=== PATIENT | female | born 1990 | race Caucasian/White ===

== ENCOUNTER 2019-07-13 00:07 | Emergency (ER) | payer MEDICAID ==
[~2019-07-13] VITALS: Ht 157.5 cm; Wt 63.5 kg
[2019-07-13 00:10] VITALS: BP 129/80
--- NOTE | 2019-07-13 00:15 | NUR ---
PT TAKEN TO BED 12
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
--- NOTE | 2019-07-13 00:31 | NUR ---
Dr. Estevez examining patient.
--- NOTE | 2019-07-13 00:33 | NUR ---
CALLED [place] [employer] AND REPORTED INCIDENT. SPOKE WITH SANDEEP, ADVISED PT TO FOLLOW UP WITH INCIDENT REPORTING AT [place] [employer] STATION AFTER DISCHARGE.
[2019-07-13] MEDS ORDERED: ACETAMINOPHEN EXTRA STRENGTH 500 MG TAB PO ONE (00:35)
[2019-07-13] MEDS ORDERED: LIDOCAINE 2% 1000 MG/50 ML VIAL INJ ONE (00:40)
--- NOTE | 2019-07-13 01:15 | NUR ---
PT TAKEN TO CT
--- NOTE | 2019-07-13 01:38 | NUR ---
PT RETURN FROM CT
[2019-07-13] MEDS ORDERED: BACITRACIN OINT 500 UNITS/GM PKT TP ONE (02:35)
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
[2019-07-13 03:05] VITALS: BP 129/80
--- NOTE | 2019-07-13 03:06 | NUR ---
Patient discharged with v/s stable. Written and verbal after care instructions given and explained. Patient alert, oriented and verbalized understanding of instructions. Ambulatory with steady gait. All questions addressed prior to discharge. ID band removed. Patient advised to follow up with PMD. Rx of TYLENOL EXTRA STRENGTH, BACTRIM, AND CLINDAMYCIN given. Patient educated on indication of medication including possible reaction and side effects. Opportunity to ask questions provided and answered. PT ACCOMPANIED BY FRIEND ON DISCHARGE.
== END 2019-07-13 03:06 | disposition home or self-care (01) ==
LOC: MED 00:07
DX: S02.32XA Fracture of orbital floor, left side, initial encounter for closed fracture (principal); S01.112A Laceration without foreign body of left eyelid and periocular area, initial encounter; R03.0 Elevated blood-pressure reading, without diagnosis of hypertension; Z88.1 Allergy status to other antibiotic agents; Z88.8 Allergy status to other drugs, medicaments and biological substances; Z88.5 Allergy status to narcotic agent; Y08.89XA Assault by other specified means, initial encounter; Y93.89 Activity, other specified; Y92.89 Other specified places as the place of occurrence of the external cause; Y99.8 Other external cause status
CPT/HCPCS: 12011; 70450; 70486; 99284; J2001